=== PATIENT | female | born 1990 | race Caucasian/White ===

== ENCOUNTER 2018-12-06 15:17 | Outpatient (CLI) | payer BC ==
--- NOTE | 2018-12-06 18:00 | TRIAGE ---
OB Triage Datetime Report Generated by CPN: 12/06/2018 18:00 Datetime: 12/06/2018 17:45 Stage of : OB Triage Datetime: 12/06/2018 17:39 Stage of : OB Triage Datetime: 12/06/2018 17:07 Labor Evaluation Frequency: 0 Monitor Mode: External Pattern: Normal: <= 5 Contractions in 10 Minutes Resting Tone Avinger: Relaxed Heart Rate FHR Baseline Rate: 135 Monitor Mode: External US Variability: Moderate 6-25 bpm Accelerations: 10X10 Decelerations: None Category: Category I Pain Assessment Pain Scale: 0 Pain Presence: None/Denies Pain Type: N/A Pain Goal: 3 Pain Relief Measures: Comfort Measures Datetime: 12/06/2018 16:17 Stage of : OB Triage Datetime: 12/06/2018 16:12 Stage of : OB Triage Assessment Type: Triage EGA: 36.5 Maternal Assessment Level of Consciousness: Keenly Alert, Responsive DTR's/Clonus: DTRs 2+; No Clonus Headache: Denies Blurred Vision: No Respiratory Effort: Unlabored; Regular Rhythm; Equal Expansion Breath Sounds, Left: Clear and Equal Breath Sounds, Right: Clear and Equal Nausea/Vomiting: Denies RUQ Epigastric Pain: Denies Facial Edema: None Temperature Route: Axillary Fall Risk Assessment History of Falling: (0) No Secondary Diagnosis: (0) No Ambulatory Aid: (0) Bedrest/Nurse Assist IV Therapy: (0) No Gait: (0) Normal/Bedrest/Immobile Mental Status: (0) Oriented to Own Ability Fall Score: 0 Fall Risk Score Definition: No Risk: No action required Labor Evaluation Frequency: 0 Monitor Mode: External Pattern: Normal: <= 5 Contractions in 10 Minutes Resting Tone Avinger: Relaxed Heart Rate FHR Baseline Rate: 135 Monitor Mode: External US Variability: Moderate 6-25 bpm Accelerations: 10X10 Decelerations: None Category: Category I Pain Assessment Pain Scale: 0 Pain Presence: Intermittent Pain Type: Cramping Pain Location: Abdomen Pain Goal: 3 Pain Relief Measures: Comfort Measures Datetime: 12/06/2018 16:11 Time of Arrival: 12/06/2018 15:12 Arrived By: Ambulatory Arrived From: Home Chief Complaint: C/O POSS SROM AT APPROX 1300, SOME ABDOMINAL CRAMPING, DENIES BLEEDING Movement: Present Contractions: Denies/Absent Rupture of Membranes: Denies Vaginal Bleeding: None Vaginal Discharge: Denies Recent Sexual Intercouse: Yes Abdominal Trauma: Not Applicable Patient Complaints: Cramping Time Provider Notified: 12/06/2018 16:17 Provider Notified: ambar Initial Plan: MONITOR, BPP, ROM PLUS, ILIANA, EFW, Ua, CBC
--- NOTE | 2018-12-06 19:43 | PN ---
Triage Information Date/Time 12/06/[birth year] Reason for visit: SROM Weeks of Gestation 37w /Para A1 Diabetes: none Hypertention: none Objective Heart Rate: 140's Heart Rate Comments CAT I Contractions: None Exam ROM plus neg Results/Medications Result Diagram: 12/06/18 1637 Results 24 hrs Laboratory Tests Test 12/06/18 16:20 12/06/18 16:37 Urine Color STRAW Urine Clarity CLEAR Urine pH 7.0 Urine Specific [place] 1.003 Urine Ketones NEGATIVE Urine Nitrite NEGATIVE Urine Bilirubin NEGATIVE Urine Urobilinogen NEGATIVE Urine Leukocyte Esterase NEGATIVE Urine Hemoglobin NEGATIVE Urine Glucose NEGATIVE Urine Total Protein NEGATIVE Membranes Rupture NEGATIVE White Blood Count 8.6 Red Blood Count 3.54 L Hemoglobin 11.4 L Hematocrit 32.9 L Mean Corpuscular Volume 92.9 Mean Corpuscular Hemoglobin 32.2 Mean Corpuscular Hemoglobin Concent 34.7 Red Cell Distribution Width 13.4 Platelet Count 154 Mean Platelet Volume 11.4 H Immature Granulocytes % 0.200 Neutrophils % 75.1 Lymphocytes % 14.0 L Monocytes % 10.2 Eosinophils % 0.3 Basophils % 0.2 Nucleated Red Blood Cells % 0.0 Immature Granulocytes # 0.020 Neutrophils # 6.5 Lymphocytes # 1.2 Monocytes # 0.9 Eosinophils # 0.0 Basophils # 0.0 Nucleated Red Blood Cells # 0.0 Imaging Results BPP 01/09 ILIANA 14.1 EFW 2801 33% Disposition: Discharge Assessment/Plan A IUP 37w no SROM P discharge home with routine labor instructions f/u with her OB PETR GENAO MD Dec 06, 2018 19:43
== END 2018-12-06 17:58 | disposition home or self-care (01) ==
LOC: OBT 15:17 → L-D 15:17 → OBT 17:58
PROVIDERS: ATTEND Obstetrics & Gynecology
DX: O42.92 Full-term premature rupture of membranes, unspecified as to length of time between rupture and onset of labor (principal); Z3A.37 37 weeks gestation of pregnancy
CPT/HCPCS: 76815; 76818; 81003; 84112; 85025; 87086; G0463

== ENCOUNTER 2018-12-27 19:09 | Inpatient (IN) | payer BC ==
[~2018-12-27] VITALS: Ht 162.6 cm; Wt 74.7 kg
[~2018-12-27 19:09] MED LIST: PNV11TAB PO
[2018-12-27 20:05] VITALS: Ht 162.6 cm; Wt 74.7 kg
[2018-12-27 20:06] VITALS: BP 133/80; PULSE 61; RESP 18
[2018-12-27] MEDS: LACTATED RINGER'S 1,000 ML IV SCH (20:25)
[2018-12-27] MEDS ORDERED: IBUPROFEN 600 MG TAB PO PRN (20:30)
[2018-12-27] MEDS ORDERED: MINERAL OIL LIGHT 10 ML VIAL TOP PRN (20:30)
[2018-12-27] MEDS ORDERED: METHYLERGONOVINE 0.2 MG INJ IM PRN (20:30)
[2018-12-27] MEDS ORDERED: LIDOCAINE 1% (MPF) 30 ML INJ INJ PRN (20:30)
[2018-12-27] MEDS ORDERED: OXYTOCIN 30 UNITS/LR 500 ML IV PRN (20:30)
[2018-12-27] MEDS ORDERED: BUTORPHANOL 2 MG INJ IV PRN (20:30)
[2018-12-27] MEDS ORDERED: OXYTOCIN 30 UNITS/LR 500 ML IV SCH ×3 (20:30)
[2018-12-27] MEDS ORDERED: CARBOPROST 250 MCG INJ IM PRN (20:30)
[2018-12-27] MEDS ORDERED: MISOPROSTOL 200 MCG TAB PR PRN (20:30)
--- NOTE | 2018-12-27 21:46 | TRIAGE ---
OB Triage Datetime Report Generated by CPN: 12/27/2018 21:45 Datetime: 12/27/2018 21:36 Effacement (%): 60 Station: -3 Datetime: 12/27/2018 21:30 Labor Evaluation Frequency: 2-4 Monitor Mode: External Duration (sec)2399: 50-70 Quality: Moderate Pattern: Normal: <= 5 Contractions in 10 Minutes Resting Tone Lohman: Relaxed Heart Rate FHR Baseline Rate: 125 Monitor Mode: External US FHR Baseline Changes: No Baseline Change Variability: Moderate 6-25 bpm Accelerations: 15X15 Decelerations: None Category: Category I Datetime: 12/27/2018 21:00 Labor Evaluation Frequency: 2-4 Monitor Mode: External Duration (sec)2399: 50-70 Quality: Moderate Pattern: Normal: <= 5 Contractions in 10 Minutes Resting Tone Lohman: Relaxed Heart Rate FHR Baseline Rate: 135 Monitor Mode: External US FHR Baseline Changes: No Baseline Change Variability: Moderate 6-25 bpm Accelerations: 15X15 Decelerations: None Category: Category I Datetime: 12/27/2018 20:38 Assessment Type: Admission Assessment Vaginal Bleeding: None Maternal Assessment Level of Consciousness: Keenly Alert, Responsive DTR's/Clonus: DTRs 2+; No Clonus Headache: Denies Blurred Vision: No Respiratory Effort: Unlabored; Regular Rhythm; Equal Expansion Breath Sounds, Left: Clear and Equal Breath Sounds, Right: Clear and Equal Nausea/Vomiting: Denies RUQ Epigastric Pain: Denies Facial Edema: None Fall Risk Assessment History of Falling: (0) No Secondary Diagnosis: (0) No Ambulatory Aid: (0) Bedrest/Nurse Assist Gait: (0) Normal/Bedrest/Immobile Mental Status: (0) Oriented to Own Ability Pain Assessment Pain Scale: 6 Pain Presence: Intermittent Pain Type: Contraction Pain Goal: 2 Datetime: 12/27/2018 20:35 Labor Evaluation Frequency: X1 Monitor Mode: External Duration (sec)2399: 90 Quality: Mild Pattern: Normal: <= 5 Contractions in 10 Minutes Resting Tone Lohman: Relaxed Heart Rate FHR Baseline Rate: 135 Monitor Mode: External US FHR Baseline Changes: No Baseline Change Variability: Moderate 6-25 bpm Accelerations: 15X15 Decelerations: None Category: Category I Datetime: 12/27/2018 19:31 Vaginal Exam Dilatation (cms): 1.0 Effacement (%): 80 Station: -2 Exam By: Rakan Choi RN Membrane Status: Ruptured Membranes Ruptured Date/Time: 12/27/2018 18:00 Membranes Rupture Method: Spontaneous Amniotic Fluid Color: Clear Amniotic Fluid Amount: Moderate Amniotic Fluid Odor: Normal Vaginal Bleeding: None Pool: Positive Nitrazine: Positive Cervix, Consistency: Soft Cervix, Position: Posterior Presentation 'A': Cephalic Datetime: 12/27/2018 19:30 Time of Arrival: 12/27/2018 19:00 EGA: 39.5 Arrived By: Ambulatory Arrived From: Home Chief Complaint: SROM Movement: Present Contractions: Regular Contractions: Every 5 min Rupture of Membranes: Ruptured Vaginal Bleeding: None Vaginal Discharge: Denies Recent Sexual Intercouse: Denies Abdominal Trauma: Not Applicable Patient Complaints: Other Time Provider Notified: 12/27/2018 19:50 Provider Notified: Dr. Javier Initial Plan: CEFM, VE, nitrazine Datetime: 12/27/2018 19:26 Stage of : OB Triage Assessment Type: Triage Maternal Assessment Level of Consciousness: Keenly Alert, Responsive DTR's/Clonus: DTRs 2+; No Clonus Headache: Denies Blurred Vision: No Respiratory Effort: Unlabored; Regular Rhythm; Equal Expansion Breath Sounds, Left: Clear and Equal Breath Sounds, Right: Clear and Equal Nausea/Vomiting: Denies RUQ Epigastric Pain: Denies Lower Extremities Edema: None Degree: None Upper Extremities Edema: None Degree: None Facial Edema: None Temperature Route: Oral Fall Risk Assessment History of Falling: (0) No Secondary Diagnosis: (0) No Ambulatory Aid: (0) Bedrest/Nurse Assist IV Therapy: (0) No Gait: (0) Normal/Bedrest/Immobile Mental Status: (0) Oriented to Own Ability Fall Score: 0 Fall Risk Score Definition: No Risk: No action required Pain Assessment Pain Scale: 4 Pain Presence: Intermittent Pain Type: Cramping Pain Location: Abdomen Datetime: 12/06/2018 16:12 Time of Arrival: 12/27/2018 20:37 EGA: 39.5 Arrived By: Ambulatory Arrived From: Home Fall Score: 0 Fall Risk Score Definition: No Risk: No action required
[2018-12-27] MEDS: LACTATED RINGER'S 1,000 ML IV PRN ×2 (22:03→22:58)
[2018-12-27] MEDS ORDERED: FENTAnyl 2MCG/ML-ROPIV 0.2% 100 ML ONE (23:17)
[2018-12-27] MEDS ORDERED: FENTAnyl 50 MCG/ML VIAL ONE (23:17)
--- NOTE | 2018-12-28 00:51 | PREAC ---
Date/Time of Note Date/Time of Note DATE: 12/28/18 TIME: 00:50 Anesthesia Eval and Record Evaluation Time Pre-Procedure Interview DATE: 12/28/18 TIME: 00:50 Age 28 Sex female NPO: Other (na ) Preoperative diagnosis labor Planned procedure epidural Past Medical History Past Medical History: None Surgery & Anesthesia Issues No known issue Meds Anticoagulation: No Beta Kristina within 24 hr: No Reason Beta Kristina not given: Pt. not on B-Kristina Reported Medications [id number] ( 19) 1 Each Tablet, 1 TAB PO DAILY, TAB 12/27/18 Current Medications Lactated Ringer's 1,000 ml @ 125 mls/hr Q8H IV Last administered on 12/27/18at 20:25; Admin Dose 125 MLS/HR; Start 12/27/18 at 20:08 Butorphanol Tartrate (Stadol) 2 mg Q2H PRN IV .PAIN SCALE 6-10 Last administered on 12/27/18at 21:04; Admin Dose 2 MG; Start 12/27/18 at 20:30 Lidocaine (Xylocaine 1% (Mpf)) 30 ml ONCE PRN INJ .EPISIOTOMY; Start 12/27/18 at 20:30 Oxytocin/Lactated Ringer's 500 ml @ 500 mls/hr ONCE POST IV ; Start 12/27/18 at 20:30 Oxytocin/Lactated Ringer's 500 ml @ 125 mls/hr POST IV ; Start 12/27/18 at 20:30 Ibuprofen (Motrin) 600 mg ONCE PRN PO .PAIN 1-5; Start 12/27/18 at 20:30 Lactated Ringer's 1,000 ml @ 2,000 mls/hr Q30M PRN IV .ANESTHESIA Last administered on 12/27/18at 22:58; Admin Dose 2,000 MLS/HR; Start 12/27/18 at 20:08 Oxytocin/Lactated Ringer's 500 ml @ 0 mls/hr ONCE PRN IV .VAGINAL BLEEDING; Start 12/27/18 at 20:30 Methylergonovine Maleate (Methergine) 0.2 mg ONCE PRN IM .VAGINAL BLEEDING; Start 12/27/18 at 20:30 Carboprost Tromethamine (Hemabate) 250 mcg ONCE PRN IM .VAGINAL BLEEDING; Start 12/27/18 at 20:30 Misoprostol (Cytotec) 1,000 mcg ONCE PRN [place] .VAGINAL BLEEDING; Start 12/27/18 at 20:30 Oxytocin/Lactated Ringer's 500 ml @ 0 mls/hr FOR INDUCTION IV Last administered on 12/27/18at 22:00; Admin Dose 2 MLS/HR; Start 12/27/18 at 20:30 Mineral Oil (Muri-Lube) 30 ml PRN PRN TOP NOTE; Start 12/27/18 at 20:30 Meds reviewed: Yes Allergies Coded Allergies: clindamycin (Verified Allergy, Mild, Rash, 12/27/18) erythromycin base (Verified Allergy, Mild, Rash, 12/27/18) cephalexin (Verified Adverse Reaction, Mild, Nausea, 12/27/18) Allergies Reviewed: Yes Labs/Studies Labs Reviewed: Reviewed by anesthesiologist Result Diagram: 12/27/182019 Laboratory Tests 12/27/18 20:20 Blood Bank Test 12/27/18 20:20 Blood Type A POSITIVE Rh Immune Globulin Candidate NO test: N/A Pre-procedure Exam Last vitals Vital Signs Date Temp Pulse Resp B/P (MAP) Pulse Ox O2 O2 Flow FiO2 Time Delivery Rate 12/27/18 99.0 61 18 133/80 Room Air 20:06 (97) Airway: Adequate mouth opening, Adequate thyromental dist Mallampati: Mallampati III Teeth: Normal Lung: Normal Heart: Normal ASA Physical Status ASA physical status: 2 Emergency: None Pre-operative Attestations Prior to commencing anesthesia and surgery, the patient was re-evaluated, there was verification of: *The patient's identity *The results of appropriate recent lab work and preoperative vital signs *The above evaluation not changing prior to induction *Anesthetic plan, risk benefits, alternative and complications discussed with patient/family; questions answered; patient/family understands, accepts and wishes to proceed. RAE BLACK DO Dec 28, 2018 00:51
--- NOTE | 2018-12-28 00:53 | PAC ---
Date/Time of Note Date/Time of Note DATE: 12/28/18 TIME: 00:52 Post-Anesthesia Notes Post-Anesthesia Note Last documented vital signs Vital Signs Date Temp Pulse Resp B/P (MAP) Pulse Ox O2 O2 Flow FiO2 Time Delivery Rate 98 62 18 120/65 Room Air 2 Activity: WNL Respiratory function: WNL Cardiovascular function: WNL Mental status: Baseline Pain reasonably controlled: Yes Hydration appropriate: Yes Nausea/Vomiting absent: Yes RAE BLACK DO Dec 28, 2018 00:53
[2018-12-28] MEDS ORDERED: NALOXONE (0.4 MG/ML) INJ IV PRN (01:00)
[2018-12-28] MEDS: FENTAnyl 2MCG/ML-ROPIV 0.2% 100 ML BAG EPI SCH ×2 (01:34→06:18)
[2018-12-28] MEDS: LACTATED RINGER'S 1,000 ML IV SCH ×2 (04:08→09:56)
[2018-12-28] MEDS ORDERED: ONDANSETRON 4 MG INJ IV PRN ×2 (08:00→11:00)
--- NOTE | 2018-12-28 08:16 | PREOPHP ---
DATE OF ADMISSION: 12/27/2018 HISTORY OF PRESENT ILLNESS: This is a 28-year-old lady, 2, para 0 with 1 . Her EDC is 12/21/2018 at 39 and 5/7 weeks, admitted to labor and delivery area in labor with ruptured bag of water. She had a spontaneous ruptured bag of water at 6:00 p.m. 12/27/2018 followed by mild irregula r contractions. She had care in my [place] office and the care was uneventful. PAST PERSONAL HISTORY: No history of diabetes, TB, asthma. ALLERGIES: NO ALLERGIES. SOCIAL HISTORY: The patient does not smoke. She does not drink. MEDICATIONS: She does not take any drugs except her iron and vitamins. GYNECOLOGIC HISTORY: She had menarche at the age of 13, every 28 days interval, 3 to 4 days duration , and moderate in amount. FAMILY HISTORY: Father has diabetes, otherwise noncontributory. OBSTETRICAL HISTORY: She is 2, para 0. She had 1 at 4 months in 2011. REVIEW OF SYSTEMS: CARDIOVASCULAR: No chest pains. RESPIRATORY: No cough. GASTROINTESTINAL: No diarrhea, no vomiting. GENITOURINARY: No dysuria. PHYSICAL EXAMINATION: GENERAL: Reveals a conscious, coherent lady and in no acute distress. VITAL SIGNS: Her blood pressure 120/80, pulse rate 80 per minute, respirations 16 per minute. BREASTS, HEART AND LUNGS: Within normal limits. ABDOMEN: Soft. No organomegaly. Fundic height 37 cm. heart tones 140 per minute. PELVIC: Exam done by me at 5:58 a.m. on 12/28/2018 revealed the cervix to be 9 cm dilated, 100% effa danielle, station 0 in cephalic presentation with the bag of water ruptured. Anterior lip of the cervix w as noted to be edematous. Bag of water was ruptured. EXTREMITIES: No pedal edema. ADMITTING DIAGNOSIS: A 39 and 5/7 weeks' intrauterine in labor. The patient was observed for progress of labor followed by Pitocin augmentation. The patient received labor epidural. She is progressing well. She was planned to be observed for progress of labor. The estimated weight is about 6 pounds. The plans of delivery were explained to the patient and she understood everythin g totally. Dictated By: CHRIS AUGUSTINE MD NS/NTS Conf#: [id number] [facility]#: [id number]
[2018-12-28] MEDS ORDERED: OXYTOCIN 30 UNITS/LR 500 ML IV SCH (10:37)
[2018-12-28] MEDS: LACTATED RINGER'S 1,000 ML IV* SCH ×2 (10:37→18:37)
--- NOTE | 2018-12-28 10:37 | OPPN ---
Date/Time of Note Date/Time of Note DATE: 12/28/18 TIME: 10:36 Operative Report Planned Procedure Procedure date Dec 28, 2018 Procedure(s) Performed by see signature line Executive Personal Assistant: A 2nd Executive Personal Assistant none Pre-procedure diagnosis 39 WEEKS IUP IN LABOR [id number] Anesthesia Type: [id number] epidural Post-Procedure Post-procedure diagnosis 39 WEEKS IUP IN LABOR SECOND DEGREE TEAR Findings Live Baby GIRL, Apgars 9and 9, weight 7LBS 4OZ Estimated Blood Loss: 200 - 300 mls Specimen(s) none Grafts/Implant(s) PLACENTA Complication(s) none CHRIS AUGUSTINE MD Dec 28, 2018 10:37
[2018-12-28] MEDS ORDERED: DIPHENHYDRAMINE 25 MG CAP PO PRN (11:00)
[2018-12-28] MEDS ORDERED: WITCH HAZEL/GLYCERIN PAD PR PRN (11:00)
[2018-12-28] MEDS ORDERED: METHYLERGONOVINE 0.2 MG INJ IM PRN (11:00)
[2018-12-28] MEDS ORDERED: BENZOCAINE 20% 56 ML SPRAY TOP PRN (11:00)
[2018-12-28] MEDS ORDERED: CARBOPROST 250 MCG INJ IM PRN (11:00)
[2018-12-28] MEDS ORDERED: LANOLIN HPA 1 PKT TOP PRN (11:00)
[2018-12-28] MEDS ORDERED: METHYLERGONOVINE 0.2 MG TAB PO PRN (11:00)
[2018-12-28] MEDS ORDERED: HYDROCODONE/APAP (5/325) TAB PO PRN (11:00)
[2018-12-28] MEDS ORDERED: OXYTOCIN 30 UNITS/LR 500 ML IV PRN (11:00)
[2018-12-28] MEDS ORDERED: NA PHOSPHATE/BIPHOS 133 ML ENEMA PR PRN (11:00)
[2018-12-28] MEDS ORDERED: ZOLPIDEM 5 MG TAB PO PRN (11:00)
[2018-12-28] MEDS ORDERED: MISOPROSTOL 200 MCG TAB PR PRN (11:00)
[2018-12-28] MEDS ORDERED: MAGNESIUM HYDROXIDE 30ML CUP PO PRN (11:00)
[2018-12-28] MEDS: IBUPROFEN 800 MG TAB PO PRN ×2 (11:39→20:45)
[2018-12-28] MEDS ORDERED: ACETAMINOPHEN 500 MG TAB PO STA (11:48)
[2018-12-28 12:10] VITALS: BP 124/72; PULSE 56; RESP 18
[2018-12-28 15:45] VITALS: BP 126/66; PULSE 56; RESP 16
[2018-12-28 19:45] VITALS: BP 110/67; PULSE 65; RESP 19
[2018-12-28] MEDS: SENNA/DOCUSATE NA (8.6MG/50MG) TAB PO SCH (21:37)
[2018-12-29] VITALS: BP 102/65; PULSE 61; RESP 19
[2018-12-29 04:00] VITALS: BP 112/58; PULSE 70; RESP 3
[2018-12-29] MEDS: IBUPROFEN 800 MG TAB PO PRN ×2 (06:01→23:47)
--- NOTE | 2018-12-29 06:17 | OPR ---
DATE OF OPERATION: 12/28/2018 PREOPERATIVE DIAGNOSIS: This is a 28-year-old lady, 2, para 0 with 1 , EDC 9, at 39 and 5/7 weeks, admitted in labor with a ruptured bag of water at 6:00 p.m., 12/27/2018. HISTORY OF PRESENT ILLNESS: See dictated history and physical. PHYSICAL EXAMINATION: See dictated history and physical. ADMITTING DIAGNOSIS: She is 39 and 5/7 weeks intrauterine , in labor. The patient was obse rved for progress of labor followed by Pitocin augmentation and she progressed well. She received la bor epidural and at 5:58 a.m., I reevaluated the patient. She was 9 cm dilated with an anterior lip of the cervix swollen, the station 0 with a bag of water ruptured. She was planned to be continued o n Pitocin augmentation and she progressed well. She had a normal spontaneous vaginal delivery on , at 10:10 a.m. delivering a healthy baby girl, 9 and 9, weighing 7 pounds 4 ounces, 328 0 grams, 20 inches long over a second-degree midline perineal tear. The placenta was delivered spont aneously and complete. Manual exploration of the uterus revealed no membranes left behind. Th e cervix, vagina, and vulva were free of hematoma. The position was direct occiput anterior. There were 3 vessels in the cord. The placenta was normal with a small shiny side and a pinkish mate rnal side. A second-degree midline perineal tear was repaired in layers using 2-0 chromic with her l abor epidural. The patient tolerated the delivery well. Placental culture was obtained. The patien t tolerated the delivery well. ESTIMATED BLOOD LOSS: About 300 mL. Vital signs were stable during and after the delivery. Dictated By: CHRIS BARRETT/JAGDISH Conf#: [id number] DID#: [id number]
[2018-12-29 08:00] VITALS: BP 110/70; PULSE 56; RESP 18
[2018-12-29] MEDS: SENNA/DOCUSATE NA (8.6MG/50MG) TAB PO SCH ×2 (09:56→21:00)
[2018-12-29] MEDS: HYDROCODONE/APAP (5/325) TAB PO PRN ×2 (10:28→19:55)
[2018-12-29 16:00] VITALS: BP 117/74
--- NOTE | 2018-12-29 16:41 | PN ---
Date/Time of Note Date/Time of Note DATE: 12/29/18 TIME: 16:40 Assessment/Plan VTE Prophylaxis Risk score (from Ns)>0 risk: 1 SCD applied (from [facility] [place]): No SCD contraindicated: low risk/ambulating Pharmacological prophylaxis: NA/contraindicated Pharm contraindication: low risk/ambulating Assessment/Plan Assessment/Plan POST DAY 1 HOME TOMORROW RETURN TO CLINIC IN 2 WEEKS CONTINUE WITH VITAMINS OD AND FERROUS SULFATE PO TID DIET ADVISED COUNSELED INSTRUCTED CALL OFFICE IF THERE IS ANY PROBLEMS OR CONCERN Result Diagram: 12/29/18 0722 Results 24hrs Laboratory Tests Test 12/29/18 07:22 White Blood Count 12.7 #H Red Blood Count 3.71 L Hemoglobin 12.0 Hematocrit 36.1 L Mean Corpuscular Volume 97.3 Mean Corpuscular Hemoglobin 32.3 Mean Corpuscular Hemoglobin Concent 33.2 Red Cell Distribution Width 13.5 Platelet Count 128 L Mean Platelet Volume 12.0 H Immature Granulocytes % 0.500 H Neutrophils % 72.6 Lymphocytes % 16.3 Monocytes % 9.4 Eosinophils % 0.8 Basophils % 0.4 Nucleated Red Blood Cells % 0.0 Immature Granulocytes # 0.060 H Neutrophils # 9.2 H Lymphocytes # 2.1 Monocytes # 1.2 H Eosinophils # 0.1 Basophils # 0.1 Nucleated Red Blood Cells # 0.0 Subjective 24 Hr Interval Summary Free Text/Dictation FEELS GOOD, GOOD URINE OUTPUT, GOOD BOWEL MOVEMENT Exam/Review of Systems Exam Vitals Vital Signs Date Temp Pulse Resp B/P (MAP) Pulse Ox O2 O2 Flow FiO2 Time Delivery Rate 12/29/18 98.1 56 18 110/70 Room Air 08:00 (83) Intake and Output 12/28/18 12/28/18 12/29/18 1515:00 23:00 07:00 IntakeIntake Total 607 ml 200 ml OutputOutput Total 1400 ml BalanceBalance -793 ml 200 ml Exam VITAL SIGNS STABLE: YES AFEBRILE: YES BREAST NOT ENGORGED, NON-TENDER, NO APPRECIABLE MASS: YES LUNGS CLEAR, NO RALES, WHEEZES, RHONCHI: YES SINUS RHYTHM WITHOUT MURMUR: YES ABDOMEN: NON-TENDER FUNDUS: BELOW UMBILICUS BOWEL SOUNDS: PRESENT UTERUS: FIRM PERINEAL TEAR HEALING WELL LOCHIA: LIGHT DEEP TENDON REFLEXES: 0 EXTREMITIES: NO CALF TENDERNESS EDEMA SCALE: NONE Results Results 24hrs Laboratory Tests Test 12/29/18 07:22 White Blood Count 12.7 #H Red Blood Count 3.71 L Hemoglobin 12.0 Hematocrit 36.1 L Mean Corpuscular Volume 97.3 Mean Corpuscular Hemoglobin 32.3 Mean Corpuscular Hemoglobin Concent 33.2 Red Cell Distribution Width 13.5 Platelet Count 128 L Mean Platelet Volume 12.0 H Immature Granulocytes % 0.500 H Neutrophils % 72.6 Lymphocytes % 16.3 Monocytes % 9.4 Eosinophils % 0.8 Basophils % 0.4 Nucleated Red Blood Cells % 0.0 Immature Granulocytes # 0.060 H Neutrophils # 9.2 H Lymphocytes # 2.1 Monocytes # 1.2 H Eosinophils # 0.1 Basophils # 0.1 Nucleated Red Blood Cells # 0.0 Medications Medication Current Medications Butorphanol Tartrate (Stadol) 2 mg Q2H PRN IV .PAIN SCALE 6-10 Last administered on 12/27/18at 21:04; Admin Dose 2 MG; Start 12/27/18 at 20:30 Lidocaine (Xylocaine 1% (Mpf)) 30 ml ONCE PRN INJ .EPISIOTOMY; Start 12/27/18 at 20:30 Oxytocin/Lactated Ringer's 500 ml @ 500 mls/hr ONCE POST IV ; Start at 20:30 Oxytocin/Lactated Ringer's 500 ml @ 125 mls/hr POST IV Last administered on 12/28/18at 10:38; Admin Dose 125 MLS/HR; Start 12/27/18 at 20:30 Ibuprofen (Motrin) 600 mg ONCE PRN PO .PAIN 1-5; Start 12/27/18 at 20:30 Lactated Ringer's 1,000 ml @ 2,000 mls/hr Q30M PRN IV .ANESTHESIA Last administered on 12/27/18at 22:58; Admin Dose 2,000 MLS/HR; Start 12/27/18 at 20:08 Oxytocin/Lactated Ringer's 500 ml @ 0 mls/hr FOR INDUCTION IV Last administered on 12/27/18at 22:00; Admin Dose 2 MLS/HR; Start 12/27/18 at 20:30 Mineral Oil (Muri-Lube) 30 ml PRN PRN TOP NOTE; Start 12/27/18 at 20:30 Naloxone HCl (Narcan) 0.2 mg Q2M PRN IV .RESP RATE; Start 12/28/18 at 01:00 Fentanyl/ Ropivacaine 100 ml EPIDURAL (PCEA) EPI Last administered on 12/28/18at 06:18; Admin Dose 100 ML; Start 12/28/18 at 01:00 Ondansetron HCl (Zofran Inj) 4 mg Q4H PRN IV NAUSEA AND/OR VOMITING; Start 12/28/18 at 08:00 Lactated Ringer's 1,000 ml @ 125 mls/hr Q8H IV* ; Start 12/28/18 at 10:37 Methylergonovine Maleate (Methergine) 0.2 mg Q6H PRN PO .VAGINAL BLEED; Start 12/28/18 at 11:00 Ondansetron HCl (Zofran Inj) 4 mg Q6H PRN IV NAUSEA/VOMITING; Start 12/28/18 at 11:00 Diphenhydramine HCl (Benadryl) 25 mg Q6H PRN PO .PRUTITUS; Start 12/28/18 at 11:00 Zolpidem Tartrate (Ambien) 5 mg QHS PRN PO .INSOMNIA; Start 12/28/18 at 11:00 Senna/Docusate Sodium (Senokot-S) 1 tab BID PO Last administered on 12/29/18at 09:56; Admin Dose 1 TAB; Start 12/28/18 at 21:00 Magnesium Hydroxide (Milk Of Mag) 30 ml Q12H PRN PO .CONSTIPATION; Start 12/28/18 at 11:00 Sodium Biphosphate/ Sodium Phosphate (Fleet Enema) 133 ml DAILY PRN [place] .CONSTIPATION; Start 12/28/18 at 11:00 Witch Chani/ Glycerin (Tucks Pads) 1 pad BEDSIDE MEDICATION PRN [place] .HEMORRHOID/EPISIOTOMY PAIN Last administered on 12/28/18at 14:31; Admin Dose 1 PAD; Start 12/28/18 at 11:00 Benzocaine (Dermoplast Lee) 1 spray BEDSIDE MEDICATION PRN TOP .HEMMORHOID/EPISIOTOMY PAIN; Start 12/28/18 at 11:00 Lanolin (Lanolin Hpa) 1 applic BEDSIDE MEDICATION PRN TOP .NIPPLES Last administered on 12/28/18at 14:31; Admin Dose 1 APPLIC; Start 12/28/18 at 11:00 Measles/Mumps/ Rubella Vaccine Live (Mmr Ii Vaccine) 0.5 ml ONCE ONCE SC* ; Start 12/30/18 at 09:00; Stop 12/30/18 at 09:01 Diphtheria/ Tetanus/Acell Pertussis (Adacel) 0.5 ml ONCE ONCE IM* ; Start 12/30/18 at 09:00; Stop 12/30/18 at 09:01 Varicella Virus Vaccine Live (Varivax Vaccine With Diluent) 1,350 unit ONCE ONCE SC* ; Start 12/30/18 at 09:00; Stop 12/30/18 at 09:01 Oxytocin/Lactated Ringer's 500 ml @ 0 mls/hr ONCE PRN IV .VAGINAL BLEEDING; Start 12/28/18 at 11:00 Methylergonovine Maleate (Methergine) 0.2 mg ONCE PRN IM .VAGINAL BLEEDING; Start 12/28/18 at 11:00 Carboprost Tromethamine (Hemabate) 250 mcg ONCE PRN IM .VAGINAL BLEEDING; Start 12/28/18 at 11:00 Misoprostol (Cytotec) 1,000 mcg ONCE PRN [place] .VAGINAL BLEEDING; Start 12/28/18 at 11:00 Ibuprofen (Motrin) 800 mg Q6H PRN PO MILD PAIN LEVEL 1-3 Last administered on 12/29/18at 06:01; Admin Dose 800 MG; Start 12/28/18 at 11:00 Acetaminophen/ Hydrocodone Bitart (Axtell (5/325)) 1 tab Q4H PRN PO MODERATE PAIN LEVEL 4-6 Last administered on 12/29/18at 10:28; Admin Dose 1 TAB; Start 12/28/18 at 11:00 Acetaminophen/ Hydrocodone Bitart (Axtell (5/325)) 2 tab Q4H PRN PO MODERATE PAIN LEVEL 4-6 Last administered on 12/28/18at 14:31; Admin Dose 2 TAB; Start 12/28/18 at 11:00 Magnesium Hydroxide (Milk Of Mag) 30 ml ONCE ONCE PO ; Start 12/29/18 at 18:00; Stop 12/29/18 at 18:01 Magnesium Hydroxide (Milk Of Mag) 30 ml 0600 ONCE PO ; Start 12/30/18 at 06:00; Stop 12/30/18 at 06:01 Bisacodyl (Dulcolax Supp) 10 mg ONCE ONCE [place] ; Start 12/29/18 at 18:00; Stop 12/29/18 at 18:01 Bisacodyl (Dulcolax Supp) 10 mg 0600 ONCE [place] ; Start 12/30/18 at 06:00; Stop 12/30/18 at 06:01 CHRIS AUGUSTINE MD Dec 29, 2018 16:41
[2018-12-29] MEDS ORDERED: MAGNESIUM HYDROXIDE 30ML CUP PO ONE (18:00)
[2018-12-29] MEDS ORDERED: BISACODYL 10 MG SUPP PR ONE (18:00)
[2018-12-29 19:45] VITALS: BP 117/70; PULSE 86; RESP 20
[2018-12-29] MEDS: LACTATED RINGER'S 1,000 ML IV* SCH ×2 (22:23→22:24)
[2018-12-30] MEDS: LACTATED RINGER'S 1,000 ML IV* SCH ×2 (02:37→10:37)
[2018-12-30 04:12] VITALS: BP 108/63; PULSE 72; RESP 18
[2018-12-30] MEDS: HYDROCODONE/APAP (5/325) TAB PO PRN (05:00)
[2018-12-30] MEDS ORDERED: MAGNESIUM HYDROXIDE 30ML CUP PO ONE (06:00)
[2018-12-30] MEDS ORDERED: BISACODYL 10 MG SUPP PR ONE (06:00)
[2018-12-30 08:30] VITALS: BP 126/62; PULSE 48; RESP 16
[2018-12-30] MEDS ORDERED: VARICELLA VACCINE LIVE/PF 1,350 UNIT/0.5 ML ML SC* ONE (09:00)
[2018-12-30] MEDS ORDERED: MEASLES,MUMPS,RUBELLA VACCINE INJ SC* ONE (09:00)
[2018-12-30] MEDS ORDERED: DIPHTH/TET/ACEL PERTUSS (ADULT) 0.5 ML VIAL IM* ONE (09:00)
[2018-12-30] MEDS: SENNA/DOCUSATE NA (8.6MG/50MG) TAB PO SCH (09:00)
[2018-12-30] MEDS: IBUPROFEN 800 MG TAB PO PRN (11:49)
--- NOTE | 2018-12-31 14:35 | DELSUM ---
Delivery Summary A-C Datetime Report Generated by CPN: 12/31/2018 14:35 DELIVERY PERSONNEL Circulation Sales Representative: Duvo, Barbara MATERNAL INFORMATION Delivery Anesthesia: Epidural Medications in Delivery: PITOCIN 30 UNITS Delivery QBL (ml): 165 Placenta Cultured: Yes Maternal Complications: None LABOR SUMMARY EDC: 12/29/2018 00:00 No. Babies in Womb: 1 Attempted: No Labor Anesthesia: None LABOR INFORMATION Reason for Induction: Not Applicable Onset of Labor: 12/27/2018 19:30 Complete Dilatation: 12/28/2018 09:33 Oxytocin: Augmentation Group B Beta Strep: Negative Antibiotics # of Doses: 0 Steroids Given: None Reason Steroids Not Administered: Not Applicable MEMBRANES Membranes Rupture Method: Spontaneous Rupture of Membranes: 12/27/2018 18:00 Length of Rupture (hr): 16.17 Amniotic Fluid Color: Clear Amniotic Fluid Amount: Moderate Amniotic Fluid Odor: Normal STAGES OF LABOR Stage 1 hr: 14 Stage 1 min: 3 Stage 2 hr: 0 Stage 2 min: 37 Stage 3 hr: 0 Stage 3 min: 2 Total Time in Labor hr: 14 Total Time in Labor min: 42 VAGINAL DELIVERY Episiotomy: None Laceration Extension: Second Degree Laceration Type: Perineal Laceration Repair: Yes Initial Vag Sponge Count: 10 Final Vag Sponge Count: 10 Initial Vag Sharps Count: 1 Final Vag Sharps Count: 2 Sponge Count Correct: Yes; Vaginal Sweep Performed Sharps Count Correct: Yes BABY A INFORMATION Infant Delivery Date/Time: 12/28/2018 10:10 Method of Delivery: Vaginal Born in Route : No : N/A Forceps: N/A Vacuum Extraction: N/A Shoulder Dystocia : No SHOULDER DYSTOCIA BABY A Delivery Date/Time: 12/28/2018 10:10 PRESENTATION/POSITION BABY A Presentation: Cephalic Cephalic Presentation: Vertex Vertex Position: Left Occipital Anterior Breech Presentation: N/A PLACENTA INFORMATION BABY A Placenta Delivery Time : 12/28/2018 10:12 Placenta Method of Delivery: Spontaneous Placenta Status: Delivered SCORES BABY A Heart Rate 1 min: >100 bpm Resp Effort 1 min: Good Cry Reflex Irritability 1 min: Cough/Sneeze/Pulls Away Muscle Tone 1 min: Active Motion Color 1 min: Body Plum, Extremit Blue Resuscitation Effort 1 min: Tactile Stimulation SCORE 1 MIN: 9 Heart Rate 5 min: >100 bpm Resp Effort 5 min: Good Cry Reflex Irritability 5 min: Cough/Sneeze/Pulls Away Muscle Tone 5 min: Active Motion Color 5 min: Body Plum, Extremit Blue Resuscitation Effort 5 min: Tactile Stimulation SCORE 5 MIN: 9 INFANT INFORMATION BABY A Gestational Age at Delivery: 39.6 Gestational Status: Full Term- 39- 40.6 Weeks Outcome : Liveborn, with signs of life Condition : Stable Sex: Female IDENTIFICATION/MEDS BABY A ID Band Number: [id number] ID Band Location: Right Leg; Left Arm Sensor Applied: Yes Sensor Number: [id number] Sensor Location : Cord Clamp Vitamin K Given : Not Given Erythromycin Given: Not Given WEIGHT/LENGTH BABY A Birthweight (gm): 3280 Weight (lb): 7 Weight (oz): 4 Length (in): 20.00 Length (cm): 50.80 CORD INFORMATION BABY A No. Cord Vessels: 3 Nuchal Cord : N/A Suction: Mouth; Nose ASSESSMENT BABY A Infant Complications: None Physical Findings at Delivery: Caput Succedaneum; Molding of the Head; Within Normal Limits Infant Respirations: Appears Normal Horse Rancher/ALS Called : No Care By: isabella blair rn Transferred To: Remains with Mother
--- NOTE | 2019-01-05 18:44 | DS ---
DATE OF ADMISSION: 12/27/2018 DATE OF DISCHARGE: 12/30/2018 This is a 28-year-old lady, 2, para 0 with 1 , EDC 12/21/2018, at 39 and 5/7 weeks, a dmitted in labor with ruptured bag of water. HISTORY OF PRESENT ILLNESS: See dictated history and physical. PHYSICAL EXAMINATION: See dictated history and physical. ADMITTING DIAGNOSIS: A 39 and 5/7 weeks intrauterine in labor. The patient received labor epidural. She received Pitocin augmentation and she progressed well. She had a normal spontaneous vaginal delivery and delivered a healthy baby girl, 9 and 9, weighing 7 pounds 4 ounces on 12/03 at 10:10 a.m. Baby weighed 7 pounds 4 ounces, 3280 grams over a second-degree midline perinea l tear. She tolerated the delivery well. She did have good course. She was on general d iet. She had good bowel movement. She was discharged home on the second day on general d iet and activity was restricted. She was counseled. She was instructed. She was told to continue t o take her iron and vitamins at home. She was discharged home in good and stable condition. Hemoglo bin on discharge was 12.0, hematocrit 36.1. FINAL DIAGNOSES: A 39 and 6/7 weeks intrauterine in labor and delivered. Dictated By: CHRIS BARRETT/JAGDISH Conf#: [id number] DID#: [id number]
== END 2018-12-30 13:50 | disposition home or self-care (01) | DRG 807 ==
LOC: OBT 19:09 → L-D 19:09 → OBT 19:48 → L-D 19:49 → PP1 12-28 12:23
PROVIDERS: ADMIT Obstetrics & Gynecology; ATTEND Obstetrics & Gynecology
PROC: 10E0XZZ Delivery of Products of Conception, External Approach (ICD-10-PCS; principal; 2018-12-28)
PROC: 0KQM0ZZ Repair Perineum Muscle, Open Approach (ICD-10-PCS; 2018-12-28)
DX: O70.1 Second degree perineal laceration during delivery (principal); Z37.0 Single live birth; Z3A.39 39 weeks gestation of pregnancy
CPT/HCPCS: 62322; 76815; 85025; 85610; 85730; 86592; 86850; 86900; 86901; 87070; 87340; 90716; G0463; J0595; J2590; J3010; J7120